=== PATIENT | male | born 1945 | race Caucasian/White ===

== ENCOUNTER → 2020-01-27 08:44 | Outpatient (CLI) | payer OTHER ==
[2011-06-30 08:20] VITALS: BMI 35.0
== END | disposition home or self-care (01) ==
LOC: D.HCCARDIO 08:44
PROVIDERS: ATTEND Internal Medicine Cardiovascular Disease
DX: I25.119 Atherosclerotic heart disease of native coronary artery with unspecified angina pectoris (principal)

== ENCOUNTER 2020-02-04 06:46 | Outpatient (CLI) | payer OTHER ==
[~2020-02-04] VITALS: Ht 170.2 cm; Wt 97.0 kg
--- NOTE | ~2020-02-04 | HEMODYNAMI ---
PATIENT:ROME LLOYD MEDICAL RECORD: [id number] : 45 LOCATION:[facility] ADMISSION DATE: 02/04/20 Generatedon:02/04/202014:02 Patient name: ROME LLOYD Patient #: [id number] SSN: D OB: 1945 Date of study: 02/04/2020 Page: Of Hemodynamic Procedure Report Patient Data Patient Demographics Procedure consent was obtained First Name: ROME Gender: Male Last Name: PREMA : 1945 Middle Initial: W Age: 74 year(s) Patient #: [id number] Race: Unknown Additional ID: [id number] Contact details Address: [facility] [address] State: [place] City: [place] Zip code: [address] Past Medical History Allergies Allergen Reaction Date Comments Reported Other allergy 02/04/2020 NIASPAN EXTENDED- RELEASE Admission Admission Data Admission Date: 02/04/2020 Admission Time: 6:46 Arrival Date: 02/04/2020 Arrival Time: 0:00 Height (in.): 66.93 BSA: 2.08 (m2) Height (cm.): 170 BMI: 33.56 (kg/m2) Weight (lbs.): 213.85 Weight (kg.): 97 Lab Results Lab Result Date: 02/04/2020 Lab Result Time: 0:00 Biochemistry Name Units Result Min Max BUN mg/dl 19 --(----)*- 7 18 Creatinine mg/dl 1 --(--*-)-- 0.6 1.3 eGFR ml/min 78 *-(----)-- 90 120 NONAFRICAN CBC Name Units Result Min Max Hematocrit % 48.5 --(--*-)-- 42 54 Hemoglobin g/dl 16.3 --(--*-)-- 13.5 17.5 Procedure Procedure Types Cath Procedure Diagnostic Procedure LHC [facility] w/Coronaries Sedation Charges Moderate Sedation up to 15 minutes PCI Procedure Coronary Stent Coronary Stent Initial Hemochron ACT Test Procedure Description Procedure Date Procedure Date: 02/04/2020 Procedure Start Time: 9:51 Procedure End Time: 10:14 Procedure Staff Name Function Shelia Cortez RN Demolition Crane Operator Scott Carlos MD Performing Physician Yulisa Villegas RT Monitor Padmini Shannon RT Scrub Edna Cullen RN Nurse Procedure Data Cath Procedure Fluoroscopy Diagnostic fluoroscopy Total fluoroscopy Time: 4.7 time: 4.7 min min Diagnostic fluoroscopy Total fluoroscopy dose: dose: 1005 mGy 1005 mGy Contrast Material Contrast Material Type Amount (ml) Isovue 300 95 Entry Location Entry Primary Successful Side Size Upsize Upsize Entry Closure Succes sful Closure Location (Fr) 1 (Fr) 2 (Fr) Remarks Device Remarks Femoral Right 5 Fr 6 Fr Exoseal artery Short Estimated blood loss: 10 ml Diagnostic catheters Device Type Used For End Catheter Placement MULTIPACK JL 4.0 5Fr Left Coronary catheter Angiography MULTIPACK 3DRC 5Fr Right Coronary catheter Angiography MULTIPACK Pigtail 5 Fr LV Angiography catheter Procedure Complications No complications Procedure Medications Medication Administration Route Dosage 0.9% NaCl I.V. 100 ml/hr Oxygen etCO2 Nasal cannula 2 l/min Lidocaine 2% added to field 20 Heparin Flush Bag added to field 2 bags (1000units/500ml NS) Versed I.V. 2 mg Fentanyl I.V. 50 mcg Heparin Bolus I.V. 5000 units Integrilin (Bolus I.V. 9 ml 2mg/ml) Plavix P.O. 600 mg Integrilin (Bolus I.V. 1 ml 2mg/ml) Hemodynamics Rest BSA: 2.08 (m2) HGB: 16.3 (g/dl) O2 Consumption: Estimated: 239.26 (ml/min) O2 Co nsumption indexed: Estimated:115.03 (ml/min/m) Heart Rate: 70 (bpm) Pressure Samples Time Site Value (mmHg) Purpose Heart Use Rate(bpm) 9:57 LV 109/4,6 Snapshot 67 9:58 LV 99/6,12 Pullback 68 9:58 AO 106/54(78) Pullback 68 Gradients Valve Time Site 1 Site 2 Mean SEP/DFP Peak To Heart Use (mmHg) (sec/min) Peak Rate (mmHg) (bpm) Aortic 9:58 LV AO 0 7 0 68 99/6,12 106/54(78) Calculations Valve P-P Mean Valve Index Valve Source Name Gradient Area Flow (cm2) Aortic 0 0 0 0 Snapshots Pre Cath Intra NCS Post Cath Vital Signs Time Heart Resp SPO2 etCO2 NIBP (mmHg) Rhythm Pain Sedation Rate (ipm) (%) (mmHg) Status Level (bpm) 9:45:30 69 23 96 32.8 150/79(131) NSR 0 (11) 10(A) , No pain 9:49:50 67 14 97 35.1 113/70(88) NSR 0 (11) 10(A) , No pain 9:54:06 64 11 95 23.1 119/70(88) NSR 0 (11) 10(A) , No pain 9:58:24 67 11 95 20.1 121/68(99) NSR 0 (11) 9(A) , No pain 10:02:38 70 14 95 35.1 122/70(97) NSR 0 (11) 9(A) , No pain 10:06:50 70 12 96 36.6 122/69(95) NSR 0 (11) 9(A) , No pain 10:11:08 77 19 97 36.6 128/73(95) NSR 0 (11) 10(A) , No pain Medications Time Medication Route Dose Verified Delivered Reason Notes Effectiveness by by 9:44:39 0.9% NaCl I.V. 100 Scott Edna used for ml/hr [facility] Tyrell Cullen procedure RN 9:44:47 Oxygen etCO2 2 Scott Edna used for Nasal l/min [facility] Tyrell Cullen procedure cannula MD WESTON 9:44:51 Lidocaine 2% added 20ml Scott Chavez for local to vial [facility] anesthetic field MD MELENDEZ 9:44:55 Heparin Flush added 2 Scott Scott used for Bag to bags [facility] procedure (1000units/500ml field MD MELENDEZ NS) 9:50:58 Versed I.V. 2 mg Scott Edna for sedation St Tyrell Cullen MD, RN 9:51:04 Fentanyl I.V. 50 Scott Edna for sedation mcg St Tyrell Cullen MD RN 10:01:44 Heparin Bolus I.V. 5000 Scott Crawleya for units [facility] Tyrell Cullen anticoagulation MD WESTON 10:01:55 Integrilin I.V. 9 ml Scott Romeroyla for (Bolus 2mg/ml) St Tyrell Cullen antiplatelet RN therapy 10:02:08 Plavix P.O. 600 Scott Bishop for mg St Tyrell Cullen antiplatelet RN therapy 10:02:23 Integrilin I.V. 1 ml Scott Bishop for (Bolus 2mg/ml) St Tyrell Cullen antiplatelet RN therapy Procedure Log Time Note 9:30:39 Informed consent obtained and on chart 9:31:01 Procedure Status Elective Heart Cath (OP). 9:31:03 Time tracking: Regular hours (M-F 7:00 - 5:00) 9:31:05 Plan of Care:Hemodynamics will remain stable., Cardiac rhythm will remain stable., Comfort level will be maintained., Respiratory function will remain adequate., Patient/ family verbilizes understanding of procedure., Procedure tolerated without complication., Recovers from procedure without complications.. 9:31:08 Shelia Cortez RN sent for patient. Start room use. 9:31:18 H&P Date Dictated: 01/15/2020 Within 30 days and on chart., H&P Addendum completed by physician on day of procedure. (MUST COMPLETE FOR ALL OUTPATIENTS). 9:32:20 Patient allergic to Other allergyNIASPAN EXTENDED- RELEASE 9:33:01 Patient Weight : 213.85 lbs 9:33:11 Patient Height : 66.93 inches 9:33:16 Arrival Date: 02/04/2020 12:00:00 AM 9:34:42 Lab Result : Hemoglobin 16.3 g/dl 9:34:42 Lab Result : Hematocrit 48.5 % 9:34:42 Lab Result : eGFR NONAFRICAN 78 ml/min 9:34:42 Lab Result : BUN 19 mg/dl 9:34:42 Lab Result : Creatinine 1 mg/dl 9:35:57 Lab results completed and on chart. 9:36:45 Patient received from Pre/Post Procedure Room to CCL 1 Alert and oriented. Tansferred to table in Supine position. 9:36:47 Warm blankets applied, and wale hugger turned on for patient comfort. 9:36:48 Correct patient and procedure confirmed by team. 9:36:50 ECG and BP/O2 sat monitors applied to patient. 9:36:56 Pre-procedure instructions explained to patient. 9:36:57 Pre-op teaching completed and patient verbalized understanding. 9:36:59 Family unavailable. 9:37:02 Patient NPO since Midnight. 9:37:06 Is the patient allergic to Iodine/contrast media? No. 9:37:09 Was the patient premedicated? Yes 9:37:12 Is patient on blood thinner?No 9:37:17 Patient diabetic? Yes. 9:37:21 If diabetic: On Metformin? Yes 9:37:39 If on Metformin: Last Dose? 02/02/2020 9:37:45 ----Pre-sedation anethsthesia assessment.---- 9:37:53 Previous problem with sedation/anesthesia? No ? 9:37:56 Snore? Yes 9:38:00 Sleep apnea? No 9:38:03 Deviated septum? Unknown 9:38:06 Opens mouth fully? Yes 9:38:10 Sticks out tongue? Yes 9:38:13 Airway obstruction? No ? 9:38:19 Dentures? No ? 9:44:12 Vital chart was started 9:44:22 Diagnostic Cath Status : Elective 9:44:39 0.9% NaCl 100 ml/hr I.V. was administered by Edna Cullen RN; used for procedure; Verbal order read back and verified. 9:44:47 Oxygen 2 l/min etCO2 Nasal cannula was administered by Edna Cullen RN ; used for procedure; Verbal order read back and verified. 9:44:51 Lidocaine 2% 20ml vial added to field was administered by Scott Carlos MD; for local anesthetic; Verbal order read back and verified. 9:44:55 Heparin Flush Bag (1000units/500ml NS) 2 bags added to field was administered by Scott Carlos MD; used for procedure; Verbal order read back and verified. 9:46:06 Spoke to Falguni and update given 9:49:04 Baseline sample Acquired. 9:49:09 Rhythm: sinus rhythm 9:49:11 Full Disclosure recording started 9:49:12 - 9:49:23 Pre procedure: right dorsailis pedis pulse 2+ Normal; easily identifiable; not easily obliterated 9:49:31 IV patent on arrival in right antecubital with 0.9% NaCl at KVO. 9:49:39 Right groin area was prepped with chlora-prep and draped in sterile fashion 9:49:42 Sharps counted by scrub and verified by R.N. 9:49:42 Alarms reviewed by R. N. 9:49:43 Physician arrived 9:49:44 --------ALL STOP TIME OUT------ 9:49:45 Final Timeout: patient, procedure, and site verified with staff and physician. All members of the team are in agreement. 9:49:48 Right groin site verified by team. 9:50:29 Fire Safety Assessment: A--An alcohol-based skin anteseptic being used preoperatively., C--Open oxygen or nitrous oxide is being used., D--An ESU, laser, or fiber-optic light is being used. 9:50:36 Physical assessment completed. ASA score P 2 - A patient with mild systemic disease as per Scott Carlos MD. 9:50:42 2) 60-89 Mildly reduced kidney function, and other findings (as for stage 1) point to kidney disease. 9:50:46 Maximum allowable contrast dose (3.7 X eGFR X 0.75)216 ml. 9:50:51 Sedation plan: IV Moderate Sedation Medication:Versed, Fentanyl 9:50:56 Use device set Femoral Dx 9:50:58 Bag Decanter () opened to sterile field. 9:50:58 ACIST Syringe (49624) opened to sterile field. 9:50:58 Versed 2 mg I.V. was administered by Edna Cullen RN; for sedation; Verbal order read back and verified. 9:50:59 Medline Cath Pack ([id number]) opened to sterile field. 9:51:00 ACIST Hand Control (47549) opened to sterile field. 9:51:01 ACIST Manifold (92187) opened to sterile field. 9:51:02 DIAGNOSTIC Multipack 5Fr catheter set ([id number]) opened to sterile field. 9:51:03 Tegaderm 4 x 4 (1626W) opened to sterile field. 9:51:04 SHEATH 5FR Standish (MYF132) opened to sterile field. 9:51:04 Fentanyl 50 mcg I.V. was administered by Edna Cullen RN; for sedation ; Verbal order read back and verified. 9:51:05 EMERALD Guide Wire (676-268) opened to sterile field. 9:51:13 Procedure started. 9:51:19 Local anesthetic to right femoral artery with Lidocaine 2% by Scott Santillan MD.INITIAL ACCESS ONLY 9:51:36 A 5 Fr sheath was inserted into the Right Femoral artery 9:51:53 Zero performed for pressure channel P1 9:52:47 A MULTIPACK JL 4.0 5Fr catheter was advanced over the wire and used for Left Coronary Angiography. 9:54:04 LCA angiography performed. 9:54:09 Injector settings: Ml/sec: 3, Volume: 6, 9:54:51 Zero performed for pressure channel P1 9:55:02 Catheter removed. 9:55:09 A MULTIPACK 3DRC 5Fr catheter was advanced over the wire and used for Right Coronary Angiography. 9:55:30 Stress Test: yes; abnormal inferiorlyl 9:56:12 RCA angiography performed. 9:56:22 Injector settings: Ml/sec: 3, Volume: 6, 9:56:24 Catheter removed. 9:56:33 A MULTIPACK Pigtail 5 Fr catheter was advanced over the wire and used for LV Angiography. 9:57:27 LV gram done using ONEIL 9:57:30 Injector settings: Ml/sec: 5, Volume: 15, 9:57:49 LV hemodynamics recorded. 9:58:00 EF : 40 % 9:58:11 Catheter removed. 9:58:15 SHEATH 6FR Standish (CGD740) opened to sterile field. 9:58:17 INFLATOR Merit BasixCompak (GJ4392) opened to sterile field. 9:58:20 WHISPER 300cm guide wire ([id number]) opened to sterile field. 9:58:41 Proceeding to intervention. 9:58:55 Sheath upsized to a 6 Fr Short. 9:59:14 GUIDE 6FR XBLAD 3.5 catheter ([id number]) opened to sterile field. 9:59:33 6 Fr XBLAD3.5 guide catheter was inserted over the wire 9:59:36 ACC Pre-intervention TRACY Flow is 3. 10:01:18 Pre PCI Site: [place] pCirc has 80% stenosis. 10:01:28 Guide catheter removed. 10:01:44 Heparin Bolus 5000 units I.V. was administered by Edna Cullen RN; for anticoagulation; Verbal order read back and verified. 10:01:46 GUIDE 6FR XBLAD 4.0 catheter ([id number]) opened to sterile field. 10:01:55 Integrilin (Bolus 2mg/ml) 9 ml I.V. was administered by Edna Cullen RN; for antiplatelet therapy; Verbal order read back and verified. 10:02:03 6 Fr XBLAD4 guide catheter was inserted over the wire 10:02:08 Plavix 600 mg P.O. was administered by Edna Cullen RN; for antiplatelet therapy; Verbal order read back and verified. 10:02:23 Integrilin (Bolus 2mg/ml) 1 ml I.V. was administered by Edna Cullen RN; for antiplatelet therapy; Verbal order read back and verified. 10:02:58 300 WHISPER wire advanced. 10:05:29 Wire advanced across lesion. 10:07:12 Place stent Inflation Number: 1 A AMNA RX 3.0 x 15 stent ([id number]) was prepped and advanced across the Prox CX . The stent was deployed at 14 ROBB for 0:20 (min:sec) . 10:07:22 ACT drawn and resulted at 194 seconds. (normal therapeutic range 180-24 0 seconds). 10:07:42 EXOSEAL 6Fr (EX600) opened to sterile field. 10:07:59 Stent catheter was removed intact over wire. 10:08:01 Wire removed. 10:08:23 Contrast amount:Isovue 300 95ml. 10:08:27 Maximum allowable dose exceeded? No. 10:08:37 Sheath removed intact; hemostasis achieved with Exoseal to the Right Femoral artery. 10:08:40 Procedure ended.(Physican Out) 10:10:08 Fluoroscopy time 04.70 minutes. 10:10:15 Fluoroscopy dose: 1005 mGy 10:10:15 Flurop Dose total: 1005 10:10:25 Dose Area Product 52283 mGy/cm. 10:11:25 Sharps counted by scrub and verified by R.N. 10:11:39 Post PCI Site: [place] pCirc has 0% stenosis. 10:11:49 ACC Post-intervention TRACY Flow is 3. 10:12:15 Insertion/operative site no bleeding no hematoma. 10:12:20 Post-op/insertion site Right Femoral artery dressed using a 4 x 4 and Tegaderm. 10:12:28 Post-procedure physical assessment completed. ASA score P 2 - A patient with mild systemic disease as per Scott Carlos MD. 10:12:34 Post procedure rhythm: unchanged. 10:12:38 Estimated blood loss: 10 ml 10:12:40 Post procedure instruction explained to patient.Patient verbalizes understanding. 10:12:41 Patient needs reinforcement of post procedure teaching. 10:13:20 Procedure type changed to Cath procedure, Diagnostic procedure, LHC, LH C w/Coronaries, Sedation Charges, Moderate Sedation up to 15 minutes, PCI procedure, Coronary Stent, Coronary Stent Initial, Hemochron ACT Test 10:14:15 Procedure Complication : No complications 10:14:19 Vital chart was stopped 10:14:23 [facility] Findings: MVD- PCI performed (see procedure note) 10:14:25 Operative report dictated upon procedure completion. 10:14:26 See physician's report for complete and final results. 10:14:28 Report given to Pre/Post Procedure Room. 10:14:33 Patient transfered to Pre/Post Procedure Room with Stretcher. 10:14:37 Procedure ended. 10:14:37 Full Disclosure recording stopped 10:14:45 ACC-PCI Only Patient was given prescriptions, or instructed by Scott Carlos MD to start/continue the following medications upon discharge: Plavix 10:17:09 Risk of Mortality: 0.1 10:17:13 Risk of blood transfusion: 0.1 10:17:16 Risk of RUBEN: 0.2 10:17:26 End room use (Document Last) Intervention Summary Intervention Notes Time ActionType Lesion and Equipment Used Action# Pressure Duration Attributes 10:07:12 Place stent Prox CX AMNA RX 3.0 x 1 14 00:20 15 stent ([id number]) Device Usage Item Name Manufacture Quantity Catalog Hospital Part Current [facility] Lot# / Number Charge Number Stock Stock Serial# Code ACIST Syringe Acist 1 85846 797813 091080 005166 20 (87461) Medical Systems Inc Bag Decanter Microtek 1 2002S 175117 42609 977318 5 (2001S) Medical Inc. Medline Cath Medline 1 [id number] 881249 31472 402480 5 Pack ([id number]) ACIST Hand Acist 1 90551 406931 432402 654727 5 Control Medical (82888) Systems Inc ACIST Manifold Acist 1 54371 679851 386199 539321 5 (37401) Medical Systems Inc DIAGNOSTIC Cardinal 1 [id number] 241433 29179 039483 30 Multipack 5Fr Health catheter set ([id number]) Tegaderm 4 x 4 3M 1 1626W 689143 765292 797205 5 (1626W) SHEATH 5FR Terumo 1 [id number] 641238 654087 918300 5 Standish (TVN728) EMERALD Guide Cardinal 1 502-455 009946 353414 042610 5 Wire (502-455) Health MULTIPACK JL Cardinal 1 010212 5 4.0 5Fr Health catheter MULTIPACK 3DRC Cardinal 1 841053 5 5Fr catheter Health MULTIPACK Cardinal 1 704209 5 Pigtail 5 Fr Health catheter SHEATH 6FR Terumo 1 [id number] 122145 301928 196349 40 Standish (QPD703) INFLATOR Merit Merit 1 UJ1465 524562 659252 412473 15 [facility] Pharm[facility] (DT6938) WHISPER 300cm Barrett 1 [id number] 069621 520856 143877 5 guide wire Vascular ([id number]) GUIDE 6FR Cardinal 1 [id number] 423846 349245 883764 10 XBLAD 3.5 Health catheter ([id number]) GUIDE 6FR Cardinal 1 [id number] 317712 633709 418233 3 XBLAD 4.0 Health catheter (62059448) AMNA RX 3.0 x Medtronic 1 [id number] 464930 8346519 083730 5 [id number] 15 stent ([id number]) EXOSEAL 6Fr Cardinal 1 EX600 385839 271718 218936 10 (EX600) Health Signature Audit Ponce Stage Time Signature Unsigned Intra-Procedure 02/04/2020 Yulisa 10:17:46 AM Nelly RT(R) (CV) Intra-Procedure 02/04/2020 Edna Cullen 10:18:12 AM RN Intra-Procedure 02/04/2020 Scott Carlos MD 10:18:38 AM Tyrell MELENDEZ 02/04/2020 1:59:50 PM Intra-Procedure 02/04/2020 Scott Sanchez 2:02:16 PM Tyrell MELENDEZ Intra-Procedure 02/04/2020 Scott Sanchez 2:02:51 PM Tyrell MELENDEZ [facility] [address] [place] [id number]
[2020-02-04] MEDS ORDERED: PRAVACHOL40 MG PO (07:44)
[2020-02-04] MEDS ORDERED: SINEMET 25-1001 EAC1 PO (07:44)
[2020-02-04] MEDS ORDERED: SOLIQUA 100 UNIT3 ML SQ (07:45)
[2020-02-04] MEDS ORDERED: GLUCOPHAGE500 MG PO (07:46)
[2020-02-04] MEDS ORDERED: GLIMEPIRIDE4 MG PO (07:46)
[2020-02-04] MEDS ORDERED: VOLTAREN75 MG PO (07:47)
[2020-02-04] MEDS ORDERED: BAYER CHEWABLE81 MG PO (07:48)
[2020-02-04 08:13] LABS: BASOPHILS 0.3 % (0-2); HEMATOCRIT 48.5 % (42.0-54.0); HEMOGLOBIN 16.3 g/dL (13.5-17.5); IMMATURE GRANULOCYTES 0.2 % (0-5); LYMPHOCYTES 23.6 % (15-50); MCH 30.2 pg (26.0-34.0); MCHC 33.6 g/dL (31.0-37.0); MCV 89.8 fL (80.0-100.0); MONOCYTES 8.6 % (2-11); NEUTROPHILS 64.3 % (40-80); PLATELET COUNT 185 10x3/uL (130-400); RDW 12.4 % (11.5-14.5); WBC 6.1 10x3/uL (4.8-10.8)
[2020-02-04 08:19] VITALS: BP 147/74; Ht 170.2 cm; Wt 97.0 kg
[2020-02-04 08:28] LABS: ALT (SGPT) 49 U/L (10-68); CALC OSMOLALITY 285 mosm/kg (275-300); CALCIUM 8.9 mg/dL (8.5-10.1); CARBON DIOXIDE 29.2 mmol/L (21.0-32.0); CHLORIDE - SERUM 101 mmol/L (98-107); CHOL - HDL RATIO 4.2 ratio (2.3-4.9); CHOLESTEROL, TOTAL 167 mg/dL (0-200); GLUCOSE 204 mg/dL (74-106); HDL CHOLESTEROL 40 mg/dL (32-96); LDL CHOLESTEROL 90 mg/dL (0-100); LDL-HDL RATIO 2.3 ratio (1.5-3.5); POTASSIUM - SERUM 4.4 mmol/L (3.5-5.1); SODIUM 139 mmol/L (136-145); TRIGLYCERIDE 189 mg/dL (30-200); UREA NITROGEN 19 mg/dL (7-18); eGFR NON AFRICAN AMERICAN 78 mL/min (90-120)
[2020-02-04] MEDS ORDERED: PLAVIX75 MG PO (10:20)
--- NOTE | 2020-02-04 10:20 | NUR ---
PT REC'D TO ROOM 10 VIA STRETCHER FROM PET HANDLER. MONITORS ESTAB. PT DROWSY, FOLLOWS COMMANDS. SEE MEDICAL SERVICES MANAGER. ALARMS ON AND C/L IN REACH.
--- NOTE | 2020-02-04 10:35 | NUR ---
R GROIN SITE SOFT, C/D/I, NO S/S BLEEDING OR HEMATOMA. HR 67, B/P 124/67. PT DENIES PAIN OR NEEDS. C/L IN REACH.
--- NOTE | 2020-02-04 11:05 | NUR ---
R GROIN SITE SOFT, NO S/S BLEEDING OR HEMATOMA. VSS. I SPOKE WITH PT RE: D/C INSTRUCTIONS, NEW MEDICATION AND RESTRICTIONS. SHE VERBALIZES UNDERSTANDING. PLAN FOR PT D/C HOME AT 1400.
--- NOTE | 2020-02-04 11:20 | NUR ---
R GROIN SITE SOFT, NO S/S BLEEDING OR HEMATOMA. PT VOIDED 150ML CLEAR, YELLOW URINE IN URINAL. DENIES OTHER NEEDS. ALARMS ON AND C/L IN REACH.
--- NOTE | 2020-02-04 11:50 | NUR ---
R GROIN SITE SOFT, NO S/S BLEEDING OR HEMATOMA. PT RESTING QUIETLY, VSS. C/L IN REACH.
--- NOTE | 2020-02-04 12:30 | NUR ---
R GROIN SITE SOFT, NO S/S BLEEDING OR HEMATOMA. R FOOT WARM WITH PALP PULSES. VSS. PT DENIES NEEDS. C/L IN REACH.
--- NOTE | 2020-02-04 13:01 | NUR ---
R GROIN SITE SOFT, C/D/I. HOB ELEVATED AND SANDWICH TRAY WITH DIET COLA PROVIDED PER PT REQUEST. C/L IN REACH.
--- NOTE | 2020-02-04 13:34 | NUR ---
R GROIN SITE SOFT, C/D/I. PIV D/C'D INTACT - DSG APPLIED. PT ALLOWED UP TO GET DRESSED.
--- NOTE | 2020-02-04 13:45 | NUR ---
ALL DISCHARGE INSTRUCTIONS REVIEWED WITH PT INCLUDING RESTRICTIONS, NEW MEDICATION AND FOLLOW UP. PT VERBALIZES UNDERSTANDING.
--- NOTE | 2020-02-04 13:50 | NUR ---
PT DISCHARGED TO PRIVATE VEHICLE WITH - D/C INSTRUCTIONS REVIEWED. PT HAS ALL BELONGINGS AND PAPER WORK.
--- NOTE | 2020-02-05 13:35 | OP ---
PATIENT NAME: ROME LLOYD MEDICAL RECORD: [id number] :45 LOCATION:D.CAT ADMISSION DATE: SURGEON: CALLIE ELLISON MD DATE OF OPERATION: 02/04/2020 PROCEDURE: Left heart catheterization, selective coronary angiography, plus PTCA stent report, right femoral artery approach. CATHETERS: A 5-Pakistani sheath, 5/4 left and right Tahira, 5/4 pig. The procedure was well tolerated. The patient returned to the stewart, sheath removed. ExoSeal device placed. FINDINGS: Left ventriculography in 30-degree ONEIL view: Normal wall motion and normal systolic function. CORONARY ANATOMY: LEFT MAIN: Left main is free of disease. LAD: Previously placed stent is widely patent. No progression of [place] disease. There is a diagonal that was totally occluded, but this fills very well via right to left collaterals. CIRCUMFLEX: Shows 80% stenosis after takeoff of first marginal branch. RIGHT CORONARY ARTERY: Dominant artery, gives rise to PDA as well as the collaterals to the diagonal and this has minimal luminal irregularities. 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 PLAN: Intervention momentarily. DESCRIPTION OF PROCEDURE: A 5-Pakistani sheath was exchanged for a 6-Pakistani sheath. A XB LAD 4 curved guiding catheter provided good guide catheter support followed by 300 cm Whisper wire. Stent deployed was a 3.0 x 15 Travon drug-eluting stent up to 14 atmospheres for 45 seconds. Final angiography shows excellent resolution of 90% stenosis, no significant residual. TRACY flow was 3 throughout the procedure. Sheath was closed with ExoSeal device. Heparin and Integrilin were used during this case. TRANSINT:[id number] Voice Confirmation ID: [id number] DOCUMENT ID: [id number] CALLIE ELLISON MD at 1335 CC: [id number] DICTATION DATE: 02/04/20 1018 FLOOR INSTALLATION MECHANIC: 02/04/20 1354 DEP CLI 02/04/20 [id number] [place] [address]
== END 2020-02-04 13:50 | disposition home or self-care (01) ==
LOC: D.CATH 06:46
PROVIDERS: ATTEND Internal Medicine Interventional Cardiology
DX: I25.119 Atherosclerotic heart disease of native coronary artery with unspecified angina pectoris (principal); R06.09 Other forms of dyspnea; E78.5 Hyperlipidemia, unspecified; E11.9 Type 2 diabetes mellitus without complications; Z79.84 Long term (current) use of oral hypoglycemic drugs